=== PATIENT | female | born 1940 | race Caucasian/White ===

== ENCOUNTER → 2017-11-20 | Outpatient (CLI) | payer MEDICARE ==
--- NOTE | 2017-11-21 11:44 | BD ---
EXAMINATION TYPE: Axial Bone Density DATE OF EXAM: 11/20/2017 COMPARISON: 2016 CLINICAL HISTORY: age related osteoporosis Height: 5'3 Weight: 189 FRAX RISK QUESTIONS: History of Fracture in Adulthood: y Secondary Osteoporosis: 3. Menopause before 45: y RISK FACTORS HISTORY OF: Diet low in dairy products/other sources of calcium: y Postmenopausal woman: y MEDICATIONS: Thyroid Medications: Which medication: Synthroid How Lon years Osteoporosis Medications: Which medication: Boniva How Lon years Additional Medications: type 2 diabetes, blood pressure, Additional History: EXAM MEASUREMENTS: Bone mineral densitometry was performed using the [employer] System. Bone mineral density as measured about the Lumbar spine is: ----- L1-L4(G/cm2): 1.049 T Score Values are as follows: ----- L2: -1.3 ----- L3: -0.3 ----- L4: -0.8 ----- L1-L4:=1.1 Bone mineral density has: Increased 0.9% since study of: 06/11/2015 Bone mineral density about the R hip (g/cm2): 0.876 Bone mineral density about the L hip (g/cm2): 0.849 T Score values are as follows: -----R Neck: -1.2 -----L Neck: -1.4 -----R Total: -0.7 -----L Total: -0.7 Bone mineral density has: Increased 0.4% since study of: 06/11/2015 IMPRESSION: Osteopenia about the lumbar spine. NOTE: T-SCORE=SD OF THE YOUNG ADULT MEAN.
--- NOTE | 2017-11-21 12:49 | MM ---
Reason for exam: screening (asymptomatic). Last mammogram was performed 2 years and 5 months ago. History: Patient is postmenopausal. Took estrogen for 9 years. Physical Findings: A clinical breast exam by your physician is recommended on an annual basis and results should be correlated with mammographic findings. MG Screening Mammo w CAD Bilateral CC and MLO view(s) were taken. Prior study comparison: June 11, 2015, bilateral MG screening mammo w CAD. June 10, 2013, bilateral digital screening mammo w/CAD. The breast tissue is heterogeneously dense. This may lower the sensitivity of mammography. Stable benign calcifications. There is no discrete abnormality. No significant changes when compared with prior studies. ASSESSMENT: Benign, BI-RAD 2 RECOMMENDATION: Routine screening mammogram of both breasts in 1 year.
== END | disposition home or self-care (01) ==
LOC: RADMAMWWP 14:52
PROVIDERS: ATTEND Family Medicine
DX: Z12.31 Encounter for screening mammogram for malignant neoplasm of breast (principal); M85.88 Other specified disorders of bone density and structure, other site
CPT/HCPCS: 77067; 77080

== ENCOUNTER → 2019-12-12 | Outpatient (CLI) | payer MEDICARE ==
--- NOTE | 2019-12-15 11:06 | US ---
EXAMINATION TYPE: US kidneys/renal and bladder DATE OF EXAM: 12/12/2019 COMPARISON: NONE CLINICAL HISTORY: N18.3 CKD. Elevated creatinine, and diabetes history per patient. EXAM MEASUREMENTS: Right Kidney: 9.3 x 5.7 x 5.3 cm Left Kidney: 10.0 x 4.7 x 4.1 cm Post Void Residual Volume: none seen to measure Right Kidney: hyperechoic focus = 0.4 x 0.3 x 0.2cm noted mid corticomedullary border and could repr esent small calcification; crescent shape anechoic area adjacent to mid pole suggests "sonographic sw eat sign" for renal failure and is noted bilaterally. Left Kidney: no masses seen Bladder: wnl Bilateral Jets seen: only right small ureteral jet seen within 3 minute observation. Normal Post Void Residual: yes. Cortical thinning and increased cortical echogenicity in both kidneys. Technologist rayo a 3 mm nons hadowing hyperechoic focus right kidney. Bladder is poorly distended. Bilateral distal ureter jets ar e not seen. Some perinephric fluid marked bilaterally by technologist. No hydronephrosis seen bilater ally. IMPRESSION: Evidence of chronic medical renal disease bilaterally. No hydronephrosis is noted bilater ally.
== END | disposition home or self-care (01) ==
LOC: RADUSWWP 06:57
PROVIDERS: ATTEND Internal Medicine Nephrology
DX: N18.3 Chronic kidney disease, stage 3 (moderate) (principal)
CPT/HCPCS: 76770

== ENCOUNTER → 2022-11-03 | Outpatient (CLI) | payer MEDICARE ==
--- NOTE | 2022-11-03 12:11 | BD ---
EXAMINATION TYPE: Axial Bone Density DATE OF EXAM: 11/03/2022 CLINICAL HISTORY: 81 years old Female. ICD-10 CODE: M85.80 Other specified disorders of bone density and structu Comparison: Prior DEXA bone scan 2017 Height: 63 Weight: 152 FRAX RISK QUESTIONS: Family History (Parent hip fracture): no History of Fracture in Adulthood: no Secondary Osteoporosis: yes 3. Menopause before 45: yes RISK FACTORS HISTORY OF: Family History of Osteoporosis: no Active: yes Diet low in dairy products/other sources of calcium: no Postmenopausal woman: yes Lost more than 2 inches in height since high school: no Frequent falls: no Poor Health: no MEDICATIONS: Thyroid Medications: yes Which medication: Synthroid How Lon+ years Osteoporosis Medications: yes Which medication: Boniva How Lon+ years Additional Medications: yes Prozac, hbp meds, EXAM MEASUREMENTS: Bone mineral densitometry was performed using the [employer] System. Bone mineral density as measured about the Lumbar spine is: ----- L1-L4(G/cm2): 1.046 T Score Values are as follows: ----- L1: -1.3 ----- L2: -1.3 ----- L3: -1.2 ----- L4: -0.9 ----- L1-L4: -1.1 Z Score Values are as follows: ----- L1: 0.4 ----- L2: 0.4 ----- L3: 0.5 ----- L4: 0.8 ----- L1-L4: 06 Bone mineral density has: Decreased -0.3% since study of: 11/20/2017 Bone mineral density about the R hip (g/cm2): 0.870 Bone mineral density about the L hip (g/cm2): 0.856 T Score values are as follows: -----R Neck: -1.2 -----L Neck: -1.2 -----R Total: -1.1 -----L Total: -1.2 Z Score values are as follows: -----R Neck: 0.9 -----L Neck: 0.8 -----R Total: 0.8 -----L Total: 0.7 Bone mineral density has: Decreased -6.4% since study of: 11/20/2017 FRAX%s: The graph provided illustrates a 18.1% chance for a major osteoporotic fx and a 3.4% chance f or the hips probability for fx in 10 years time. IMPRESSION: Osteopenia (T Score between -2.5 and -1) remains present. There is slightly increased risk of fracture and the patient may be considered for treatment. Re-Screen 2-5 years. NOTE: T-SCORE=SD OF THE YOUNG ADULT MEAN.
--- NOTE | 2022-11-06 09:48 | MM ---
Reason for Exam: Screening (asymptomatic). Last mammogram was performed 4 year(s) and 11 month(s) ago. Patient History: Menarche at age 14. First Full-Term at age 24. Left ovary removed at age 47. Right ovary removed at age 47. Hysterectomy at age 47. Postmenopausal. Patient used Estrogen for 9 years. Risk Values: Kiya 5 year model risk: 1.5%. Prior Study Comparison: 06/10/2013 Bilateral Screening Mammogram, [facility]. 06/11/2015 Bilateral Screening Mammogram, [facility]. 11/20/2017 Bilateral Screening Mammogram, [facility]. Tissue Density: The breast tissue is heterogeneously dense. This may lower the sensitivity of mammography. Findings: Analyzed By CAD. There is no suspicious group of microcalcifications or new suspicious mass in either breast. Overall Assessment: Benign, BI-RAD 2 Management: Screening Mammogram of both breasts in 1 year. . Patient should continue monthly self-breast exams. A clinical breast exam by your physician is recommended on an annual basis. This exam should not preclude additional follow-up of suspicious palpable abnormalities. Note on Kiya scores and lifetime risk: 1. A Kiya score greater than 3% is considered moderate risk. If this is the case, consider specialist referral to assess eligibility for a risk reducing agent. 2. If overall lifetime risk for the development of breast cancer is 20% or higher, the patient may qualify for future screening with alternating mammogram and breast MRI. Electronically signed and approved by: Edmond Rhodes M.D. Radiologis
== END | disposition home or self-care (01) ==
LOC: RADMAMWWP 09:51
PROVIDERS: ATTEND Family Medicine
DX: Z12.31 Encounter for screening mammogram for malignant neoplasm of breast (principal); M85.89 Other specified disorders of bone density and structure, multiple sites; Z78.0 Asymptomatic menopausal state
CPT/HCPCS: 77063; 77067; 77080

== ENCOUNTER → 2024-06-03 | Outpatient (CLI) | payer MEDICARE ==
--- NOTE | 2024-06-03 10:13 | CA ---
Transthoracic Echo Report Name: Megan Collins Age: 83 Gender: F : 1940 Exam Date: 06/03/2024 08:34 Exam Location: [facility] Ht (in): 63 Wt (lb): 140 Ordering Physician: Altaf Lanza DO Attending/Referring Phys: Luis Schneider FNC Design Agent Cathy Pete RDCS Procedure CPT: Indications: R94.31 ABNORMAL ELECTROCARDIOGRAM [ECG] [EKG] Cardiac Hx: Technical Quality: Good Contrast 1: Total Dose (mL): Contrast 2: Total Dose (mL): MEASUREMENTS (Male / Female) Normal Values 2D ECHO LV Diastolic Diameter PLAX 4.6 cm 4.2 - 5.9 / 3.9 - 5.3 cm LV Systolic Diameter PLAX 2.8 cm IVS Diastolic Thickness 1.3 cm 0.6 - 1.0 / 0.6 - 0.9 cm LVPW Diastolic Thickness 1.3 cm 0.6 - 1.0 / 0.6 - 0.9 cm LV Relative Wall Thickness 0.6 RV Internal Dim ED PLAX 2.5 cm LA Systolic Diameter LX 3.6 cm 3.0 - 4.0 / 2.7 - 3.8 cm LV Diastolic Volume MOD BP 41.9 cm??? 67 - 155 / 56 - 104 cm??? LV Systolic Volume MOD BP 13.6 cm??? 22 - 58 / 19 - 49 cm??? LV Ejection Fraction MOD BP 67.6 % >= 55 % LV Cardiac Index MOD BP 1440.4 cm???/min???m??? LV Diastolic Volume MOD 4C 37.4 cm??? LV Systolic Volume MOD 4C 13.3 cm??? LV Ejection Fraction MOD 4C 64.5 % LV Cardiac Index MOD 4C 1226.8 cm???/min???m??? LV Diastolic Length 4C 5.8 cm LV Systolic Length 4C 5.0 cm LV Diastolic Volume MOD 2C 45.3 cm??? LV Systolic Volume MOD 2C 13.6 cm??? LV Ejection Fraction MOD 2C 70.1 % LV Cardiac Index MOD 2C 1614.9 cm???/min???m??? LV Diastolic Length 2C 6.1 cm LV Systolic Length 2C 4.8 cm M-MODE Aortic Root Diameter MM 3.2 cm LA Systolic Diameter MM 3.9 cm LA Ao Ratio MM 1.2 AV Cusp Separation MM 1.8 cm DOPPLER AI Peak Velocity 263.0 cm/s AI Peak Gradient 27.7 mmHg AI Pressure Half Time 767.7 ms Mitral E Point Velocity 79.9 cm/s Mitral A Point Velocity 113.9 cm/s Mitral E to A Ratio 0.7 MV Deceleration Time 275.4 ms MV E' Velocity 7.1 cm/s Mitral E to MV E' Ratio 11.2 TR Peak Velocity 228.6 cm/s TR Peak Gradient 20.9 mmHg Right Ventricular Systolic Press 30.9 mmHg FINDINGS Left Ventricle Left ventricular ejection fraction is estimated at 55-60 %. Moderately increased septal wall thickness. Moderately increased posterior wall thickness. Normal Left ventricular size, wall thickness, systolic function with no obvious regional wall motion abnormalities. Normal Left ventricular diastolic filling pattern. Right Ventricle Normal right ventricular size and function. Right ventricular systolic pressure within normal limits. Right Atrium Normal right atrial size. Left Atrium Mild left atrial dilatation. Mitral Valve Structurally normal mitral valve. Trace to mild mitral regurgitation. No mitral stenosis. Aortic Valve Trileaflet aortic valve. Mild aortic regurgitation. No aortic stenosis. Tricuspid Valve Structurally normal tricuspid valve. Trace to mild tricuspid regurgitation. No tricuspid stenosis. Pulmonic Valve Structurally normal pulmonic valve. Trace pulmonic regurgitation. No pulmonic stenosis. Pericardium No pericardial or pleural effusion. Aorta Normal size aortic root and proximal ascending aorta. CONCLUSIONS Normal LV size and systolic function. Calcified aortic valve leaflets without restriction. There is mild aortic regurgitation. Mild mitral and tricuspid regurgitation. No significant pulmonary hypertension. No pericardial effusion Previewed by: Dr. Lamont Granger MD (Electronically Signed) Final Date: 03 June 2024 10:12
== END | disposition home or self-care (01) ==
LOC: RADECHMAIN 08:23
PROVIDERS: ATTEND Family Medicine
DX: I08.3 Combined rheumatic disorders of mitral, aortic and tricuspid valves (principal); R94.31 Abnormal electrocardiogram [ECG] [EKG]
CPT/HCPCS: 93306